=== PATIENT | female | born 1940 | race Caucasian/White ===

== ENCOUNTER 2018-09-23 15:21 | Inpatient (IN) ==
[2018-09-23] MEDS ORDERED: Isovue-370 500 ML BOTTLE IVP ONE (15:29)
[2018-09-23] MEDS ORDERED: Ondansetron 4 MG/2 ML VIAL IVP ONE (15:32)
[2018-09-23] MEDS ORDERED: 0.9 % Sodium Chloride 1,000 ML IVC ONE (15:32)
[2018-09-23] MEDS ORDERED: *HR* LORazepam 2 MG/ML VIAL IVP ONE (15:38)
--- NOTE | 2018-09-23 15:40 | Emergency Department Note ---
Disposition Clinical Impression: Nausea and vomiting Disposition: Still a Patient Condition: Fair Forms: ED Satisfaction Letter, Work/School Release Time of Disposition: 16:52 Abdominal Pain HPI - General Chief Complaint: ED Abdominal Pain Stated Complaint: NV Time Seen by Provider: 09/23/18 15:28 Source: patient - History of Present Illness HPI Narrative: Patient is a 78-year-old female who presents to the emergency room with complaints of nausea and vomiting. The patient also complaining of left-sided flank discomfort. The patient states the nausea and vomiting started about 10:00 today. Patient states this feels like when she had previous bowel tra ctions. Patient has seen Dr. Vega. She apparently contacted him earlier and she thought that she needed to come to the hospital. The patient denies any otherwise significant abdominal discomfort, chest pain, shortness of breath. She states her pain in her left flank, 5-10 scale, she states that she always has some chronic back pain. She denies any focal weakness or numbness. She has had no loss of bowel or bladder, she denies any saddle anesthesia. Patient denies any history of fall or trauma. She denies any head injury, she denies any headache, diaphoresis, fevers or chills. Patient has had no black or bloody stools or emesis. Pain Scale: 6 - Related Data Home Medications Medication Instructions Recorded Confirmed Amlodipine [Norvasc] 5 mg PO QPM 11/08/14 02/11/18 Aspirin/Acetaminophen/Caffeine 2 each PO BID PRN 11/08/14 02/11/18 [Excedrin Extra Strength Caplet] Calcium Carbonate/Vitamin D3 1 each PO BID 11/08/14 02/11/18 [Calcium 600 + D Tablet] Cholecalciferol (Vitamin D3) 1,000 unit PO DAILY 11/08/14 02/11/18 [Vitamin D] Docusate Sodium [Stool Softener] 250 mg PO BID 11/08/14 02/11/18 Fiber 2 tab PO BID 11/08/14 02/11/18 Losartan [Cozaar] 50 mg PO DAILY 11/08/14 02/11/18 Multivit-Min/FA/Lycopen/Lutein 1 each PO DAILY 11/08/14 02/11/18 [Centrum Silver Tablet] Niacin 500 mg PO BID 11/08/14 02/11/18 Potassium Chloride 20 meq PO TID 11/08/14 02/11/18 Propranolol [Inderal] 10 mg PO TID 11/08/14 02/11/18 Triamterene/HCTZ 37.5/25mg 1 tab PO QAM 11/08/14 02/11/18 [Dyazide] Ferrous Gluconate 324 mg PO DAILY 02/11/18 02/11/18 Rosuvastatin Calcium [Crestor] 5 mg PO HS 02/11/18 02/11/18 Previous Rx's Medication Instructions Recorded Acetaminophen [Tylenol] 650 mg PO Q6HR PRN tablet 02/17/18 Allergies Allergy/AdvReac Type Severity Reaction Status Date / Time Sulfa (Sulfonamide Allergy Mild Rash Verified 09/23/18 16:14 Antibiotics) JOHNNY Inhibitors AdvReac Mild Cough Verified 09/23/18 16:14 Abdominal Pain PMH - Past Medical History Medical history: Reports: hyperlipidemia, hypertension, other Female Surgical History: Reports: appendectomy, colectomy, hysterectomy, other Psychiatric history: Reports: no psych history - Social History Smoking status: Never smoker Alcohol use: Reports: none Drug use: Reports: none Physical Exam - General Limitations: no limitations General appearance: alert, in no apparent distress Course Vital Signs Temperature 98.9 F 09/23/18 15:24 Pulse Rate 97 09/23/18 15:24 Respiratory Rate 18 09/23/18 15:24 Blood Pressure 175/102 09/23/18 15:24 O2 Sat by Pulse Oximetry 94 09/23/18 15:24 Temperature 98.9 F 09/23/18 15:24 Pulse Rate 94 09/23/18 16:07 Respiratory Rate 21 09/23/18 16:07 Blood Pressure 185/93 09/23/18 16:07 O2 Sat by Pulse Oximetry 94 09/23/18 16:07 Oxygen Delivery Oxygen Delivery Room Air Abdominal Pain - MDM Narrative Medical decision making narrative: EKG was then that showed sinus rhythm 92 beats a minute, patient has what 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 Government Affairs Director myself. Patient has unremarkable workup so far here in the emergency room. The patient is pending urinalysis and CT. At this time case was turned over to Dr. Agrawal. Patient has unremarkable EKG. The patient at this point in time is resting comfortable in the emergency room. - Lab Data Result diagrams: 09/23/18 15:49 09/23/18 15:49 Lab Results 09/23/18 09/23/18 Range/Units 15:49 15:49 WBC 11.4 H (4.3-11.1) K/mcL RBC 5.11 H (3.82-4.97) M/mcL Hgb 14.1 (11.5-15.4) g/dL Hct 44.1 (35.3-44.9) % MCV 86.3 (83.0-100.0) fL MCH 27.6 L (28.0-33.3) pg MCHC 32.0 (31.6-35.5) g/dL RDW 14.3 (11.5-14.5) % Plt Count 327 (140-400) K/mcL MPV 9.8 (9.4-12.4) fL Immature Gran % 0.3 (0-4) % Seg Neutrophils % 91.9 % Lymphocytes % 3.9 % Monocytes % 3.2 % Eosinophils % 0.3 % Basophils % 0.4 % Neutrophils # 10.5 H (1.6-8.9) K/mcL Lymphocytes # 0.4 L (0.6-4.6) K/mcL Monocytes # 0.4 (0.0-1.3) K/mcL Eosinophils # 0.0 (0.0-0.6) K/mcL Basophils # 0.0 (0.0-0.2) K/mcL Sodium 137 (136-145) mEq/L Potassium 3.7 (3.5-5.1) mEq/L Chloride 98 (98-107) mEq/L Carbon Dioxide 30 H (23-29) mEq/L BUN 16 (8-23) mg/dL Creatinine 0.88 (0.60-1.20) mg/dL Est GFR ( Amer) > 60 (> 60) Est GFR (Non-Af Amer) > 60 (> 60) BUN/Creatinine Ratio 18 (6-26) Glucose 193 H (70-105) mg/dL Calculated Osmolality 290 (280-300) Calcium 10.5 H (8.6-10.3) mg/dL Total Bilirubin 0.3 (0.3-1.0) mg/dL Direct Bilirubin 0.1 (0.0-0.2) mg/dL Indirect Bilirubin 0.2 (0.0-1.2) mg/dL AST 20 (13-39) Units/L ALT 12 (7-52) Units/L Alkaline Phosphatase 64 (34-104) Units/L Troponin I < 0.03 (< 0.04) ng/mL Serum Total Protein 8.5 (6.4-8.9) g/dL Albumin 4.3 (3.5-5.7) g/dL Globulin 4.2 H (2.4-3.5) g/dL Albumin/Globulin Ratio 1.0 L (1.1-2.2) Lipase 10 L (11-82) Units/L
[2018-09-23 16:04] LABS: Basophils % 0.4 %; Eosinophils % 0.3 %; Hematocrit 44.1 % (35.3-44.9); Hemoglobin 14.1 g/dL (11.5-15.4); Immature Granulocytes % 0.3 % (0-4); Lymphocytes # 0.4 K/mcL (0.6-4.6); Lymphocytes % 3.9 %; Mean Corpuscular Hemoglobin 27.6 pg (28.0-33.3); Mean Corpuscular Volume 86.3 fL (83.0-100.0); Mean Platelet Volume 9.8 fL (9.4-12.4); Monocytes # 0.4 K/mcL (0.0-1.3); Monocytes % 3.2 %; Neutrophils # 10.5 K/mcL (1.6-8.9); Platelet Count 327 K/mcL (140-400); Red Blood Count 5.11 M/mcL (3.82-4.97); Red Cell Distribution Width 14.3 % (11.5-14.5); Segmented Neutrophils % 91.9 %; White Blood Count 11.4 K/mcL (4.3-11.1)
[2018-09-23 16:23] LABS: Alanine Aminotransferase 12 Units/L (7-52); Albumin 4.3 g/dL (3.5-5.7); Alkaline Phosphatase 64 Units/L (34-104); Aspartate Amino Transferase 20 Units/L (13-39); BUN/Creatinine Ratio 18 (6-26); Bilirubin,Direct 0.1 mg/dL (0.0-0.2); Bilirubin,Indirect 0.2 mg/dL (0.0-1.2); Bilirubin,Total 0.3 mg/dL (0.3-1.0); Blood Urea Nitrogen 16 mg/dL (8-23); Calcium 10.5 mg/dL (8.6-10.3); Carbon Dioxide 30 mEq/L (23-29); Chloride 98 mEq/L (98-107); Globulin 4.2 g/dL (2.4-3.5); Glucose 193 mg/dL (70-105); Lipase 10 Units/L (11-82); Osmolality,Calculated 290 (280-300); Potassium 3.7 mEq/L (3.5-5.1); Sodium 137 mEq/L (136-145); Total Protein 8.5 g/dL (6.4-8.9); eGFR For African Americans > 60 (> 60); eGFR For Non-African Americans > 60 (> 60)
[2018-09-23 16:39] LABS: Troponin I < 0.03 ng/mL (< 0.04)
[2018-09-23 17:04] LABS: Bilirubin,Urine Negative (Negative); Blood,Urine Small (Negative); Clarity,Urine Cloudy (Clear); Color,Urine Yellow (Yellow); Glucose,Urine (UA) Normal (Normal); Ketones,Urine Negative (Negative); Leukocyte Esterase,Urine Negative (Negative); Nitrite,Urine Negative (Negative); Protein,Urine 30 mg/dL (Neg-Trace); Specific Gravity,Urine 1.011 (1.010-1.025); Urobilinogen,Urine Normal (Normal)
[2018-09-23 17:05] LABS: Bacteria,Urine Many per hpf (None-Few); Hyaline Casts,Urine None Seen per lpf (None-Few); RBC,Urine 0-3 per hpf (0-3); Squamous Epithelial Cell,Urine Moderate per lpf (None-Few); WBC,Urine 0-3 per hpf (0-3)
[2018-09-23] MEDS ORDERED: *HR* FentaNYL (PF) 100 MCG/2 ML VIAL IVP ONE (18:05)
--- NOTE | 2018-09-23 18:47 | Emergency Department Note ---
Disposition Clinical Impression: Nausea and vomiting, Small bowel obstruction Disposition: Admitted As Inpatient Condition: Fair Referrals: Rashad Quevedo MD [Primary Care Provider] - Forms: ED Satisfaction Letter, Work/School Release Time of Disposition: 18:46 Abdominal Pain HPI - General Chief Complaint: ED Abdominal Pain Stated Complaint: NV Time Seen by Provider: 09/23/18 15:28 Source: patient - History of Present Illness Pain Scale: 6 - Related Data Home Medications Medication Instructions Recorded Confirmed Amlodipine [Norvasc] 5 mg PO QPM 11/08/14 02/11/18 Aspirin/Acetaminophen/Caffeine 2 each PO BID PRN 11/08/14 02/11/18 [Excedrin Extra Strength Caplet] Calcium Carbonate/Vitamin D3 1 each PO BID 11/08/14 02/11/18 [Calcium 600 + D Tablet] Cholecalciferol (Vitamin D3) 1,000 unit PO DAILY 11/08/14 02/11/18 [Vitamin D] Docusate Sodium [Stool Softener] 250 mg PO BID 11/08/14 02/11/18 Fiber 2 tab PO BID 11/08/14 02/11/18 Losartan [Cozaar] 50 mg PO DAILY 11/08/14 02/11/18 Multivit-Min/FA/Lycopen/Lutein 1 each PO DAILY 11/08/14 02/11/18 [Centrum Silver Tablet] Niacin 500 mg PO BID 11/08/14 02/11/18 Potassium Chloride 20 meq PO TID 11/08/14 02/11/18 Propranolol [Inderal] 10 mg PO TID 11/08/14 02/11/18 Triamterene/HCTZ 37.5/25mg 1 tab PO QAM 11/08/14 02/11/18 [Dyazide] Ferrous Gluconate 324 mg PO DAILY 02/11/18 02/11/18 Rosuvastatin Calcium [Crestor] 5 mg PO HS 02/11/18 02/11/18 Previous Rx's Medication Instructions Recorded Acetaminophen [Tylenol] 650 mg PO Q6HR PRN tablet 02/17/18 Allergies Allergy/AdvReac Type Severity Reaction Status Date / Time Sulfa (Sulfonamide Allergy Mild Rash Verified 09/23/18 16:14 Antibiotics) JOHNNY Inhibitors AdvReac Mild Cough Verified 09/23/18 16:14 Abdominal Pain PMH - Past Medical History Medical history: Reports: hyperlipidemia, hypertension, other Female Surgical History: Reports: appendectomy, colectomy, hysterectomy, other Psychiatric history: Reports: no psych history - Social History Smoking status: Never smoker Alcohol use: Reports: none Drug use: Reports: none Physical Exam - General Limitations: no limitations General appearance: alert, in no apparent distress Course Vital Signs Temperature 98.9 F 09/23/18 15:24 Pulse Rate 97 09/23/18 15:24 Respiratory Rate 18 09/23/18 15:24 Blood Pressure 175/102 09/23/18 15:24 O2 Sat by Pulse Oximetry 94 09/23/18 15:24 Temperature 98.9 F 09/23/18 15:24 Pulse Rate 107 09/23/18 18:26 Respiratory Rate 12 09/23/18 18:26 Blood Pressure 158/110 09/23/18 18:26 O2 Sat by Pulse Oximetry 94 09/23/18 18:26 Oxygen Delivery Oxygen Delivery Room Air Abdominal Pain - MDM Narrative Medical decision making narrative: I received signout on this patient from my colleague, laboratory studies were reviewed and were all within acceptable limits apart from a leukocytosis. CT scan of the abdomen and pelvis showed a high-grade small bowel obstruction within the proximal jejunum I contacted this patient's surgeon , who requested NG tube placement, admission to medicine with consult from himself he states he will see this patient and provide further management thereof. I spoke with Dr. Villa with the internal medicine service who has agreed to admit this patient. - Lab Data Result diagrams: 09/23/18 15:49 09/23/18 15:49 Lab Results 09/23/18 09/23/18 09/23/18 Range/Units 15:49 15:49 16:50 WBC 11.4 H (4.3-11.1) K/mcL RBC 5.11 H (3.82-4.97) M/mcL Hgb 14.1 (11.5-15.4) g/dL Hct 44.1 (35.3-44.9) % MCV 86.3 (83.0-100.0) fL MCH 27.6 L (28.0-33.3) pg MCHC 32.0 (31.6-35.5) g/dL RDW 14.3 (11.5-14.5) % Plt Count 327 (140-400) K/mcL MPV 9.8 (9.4-12.4) fL Immature Gran % 0.3 (0-4) % Seg Neutrophils % 91.9 % Lymphocytes % 3.9 % Monocytes % 3.2 % Eosinophils % 0.3 % Basophils % 0.4 % Neutrophils # 10.5 H (1.6-8.9) K/mcL Lymphocytes # 0.4 L (0.6-4.6) K/mcL Monocytes # 0.4 (0.0-1.3) K/mcL Eosinophils # 0.0 (0.0-0.6) K/mcL Basophils # 0.0 (0.0-0.2) K/mcL Sodium 137 (136-145) mEq/L Potassium 3.7 (3.5-5.1) mEq/L Chloride 98 (98-107) mEq/L Carbon Dioxide 30 H (23-29) mEq/L BUN 16 (8-23) mg/dL Creatinine 0.88 (0.60-1.20) mg/dL Est GFR ( Amer) > 60 (> 60) Est GFR (Non-Af Amer) > 60 (> 60) BUN/Creatinine Ratio 18 (6-26) Glucose 193 H (70-105) mg/dL Calculated Osmolality 290 (280-300) Calcium 10.5 H (8.6-10.3) mg/dL Total Bilirubin 0.3 (0.3-1.0) mg/dL Direct Bilirubin 0.1 (0.0-0.2) mg/dL Indirect Bilirubin 0.2 (0.0-1.2) mg/dL AST 20 (13-39) Units/L ALT 12 (7-52) Units/L Alkaline Phosphatase 64 (34-104) Units/L Troponin I < 0.03 (< 0.04) ng/mL Serum Total Protein 8.5 (6.4-8.9) g/dL Albumin 4.3 (3.5-5.7) g/dL Globulin 4.2 H (2.4-3.5) g/dL Albumin/Globulin Ratio 1.0 L (1.1-2.2) Lipase 10 L (11-82) Units/L Urine Color Yellow (Yellow) Urine Clarity Cloudy A (Clear) Urine pH 6.0 (5.0-8.0) pH Units Ur Specific [place] 1.011 (1.010-1.025) Urine Protein 30 H (Neg-Trace) mg/dL Urine Glucose (UA) Normal (Normal) mg/dL Urine Ketones Negative (Negative) mg/dL Urine Blood Small H (Negative) Urine Nitrite Negative (Negative) Urine Bilirubin Negative (Negative) Urine Urobilinogen Normal (Normal) mg/dL Ur Leukocyte Esterase Negative (Negative) Urine Microscopic RBC 0-3 (0-3) per hpf Urine Microscopic WBC 0-3 (0-3) per hpf Ur Squamous Epith Cells Moderate H (None-Few) per lpf Urine Bacteria Many H (None-Few) per hpf Hyaline Casts None Seen (None-Few) per lpf Ur Culture Indicated? YES A (NO)
[2018-09-23] MEDS ORDERED: Ondansetron 4 MG/2 ML VIAL IVP PRN (19:49)
[2018-09-23] MEDS ORDERED: Naloxone 0.4 MG/ML INJ IVP PRN (19:49)
--- NOTE | 2018-09-23 19:55 | Internal Med History&Physical ---
Date of Encounter: 09/23/18 Time of Encounter: 19:55 Internal Medicine - H&P: HPI Chief complaint: Abdominal Pain History of present illness: Ms. Solis is a 78 year old female with a PMH of hyperlipidemia, hypertension, and a surgical Hx of appendectomy, colectomy, hysterectomy and previous history of SBO status post lysis of adhesions who presents to the emergency room with complaints of nausea and vomiting. The patient states the nausea and vomiting started about 10:00 today shortly after having brunch. Patient states this feels like when she had previous bowel tractions. Patient has seen Dr. Vega. She apparently contacted him earlier and she thought that she needed to come to the hospital. The patient denies any otherwise significant abdominal discomfort, chest pain, shortness of breath. Last bowel movement was earlier this morning which she states was small in size and amount. Has not passed gas since arrival to the hospital. She denies any head injury, she denies any headache, diaphoresis, fevers or chills. Patient has had no black or bloody stools or emesis. On initial assessment patient was afebrile, mildly hypertensive saturating 93% on room air. Laboratory workup was notable for a mild leukocytosis of 11.4. Remainder of laboratory workup was unremarkable. CT scan of the abdomen and pelvis showed evidence of a high-grade small bowel obstruction in the proximal jejunum resulting in proximal small bowel and gastric dilatation. Case was discussed with , who requested NG tube placement, admission to medicine with consult from himself he states he will see this patient and provide further management thereof. 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, spinal stenosis, borderline DM, chronic fatigue, retrolisthesis of vertebrae, DJD, Psychiatric history: no psych history - Past Surgical History Surgical History: appendectomy, hysterectomy Additional surgical history: bowel resection-1990, bladder sling - Social History Smoking Status: Never smoker Smokeless Tobacco Status: No Alcohol use: none Drug use: none - Family History Mother Living Status: Hx Family Cardiac Disorders: Yes (HTN) Hx Family Neuromuscular Disorders: Yes (TIA) Internal Medicine - H&P: Meds Aspirin/Acetaminophen/Caffeine [Excedrin Extra Strength Caplet] 2 tab PO 3-4XD PRN 11/08/14 [History] Multivit-Min/FA/Lycopen/Lutein [Centrum Silver Tablet] 1 tab PO DAILY 11/08/14 [History] Propranolol [Inderal] 10 mg PO TID 11/08/14 [History] Ferrous Gluconate 324 mg PO BID 02/11/18 [History] Amlodipine Besylate 5 mg PO QPM 09/24/18 [History] Calcium Carbonate/Vitamin D3 [Calcium 600 + Vit D Tablet] 1 tab PO BID 09/24/18 [History] Cholecalciferol (Vitamin D3) [Vitamin D] 1,000 unit PO DAILY 09/24/18 [History] Docusate Sodium [Stool Softener] 100 mg PO BID 09/24/18 [History] Estradiol 1 appful VG 2XW 09/24/18 [History] Losartan Potassium [Cozaar] 50 mg PO DAILY 09/24/18 [History] Potassium Chloride [K-Tab ER] 20 meq PO TID 09/24/18 [History] Psyllium Husk [Fiber] 1.04 gm PO BID 09/24/18 [History] Rosuvastatin Calcium 10 mg PO HS 09/24/18 [History] Triamterene/HCTZ 37.5/25mg [Dyazide] 1 tab PO QAM 09/24/18 [History] Allergy/AdvReac Type Severity Reaction Status Date / Time Sulfa (Sulfonamide Allergy Mild Rash Verified 09/24/18 16:52 Antibiotics) JOHNNY Inhibitors AdvReac Mild Cough Verified 09/24/18 16:52 All Systems PM: A 10-system review of systems was performed and is negative for pertinent findings except as documented above in the HPI. - Constitutional Constitutional: no chills, no fever(s), no night sweats - EENT Eyes: no change in vision, no discharge, no pain, no photophobia Ears: no ear discharge, no ear pain, no tinnitus Nose, mouth and throat: no dysphagia, no nasal discharge, no neck pain, no sore throat - Cardiovascular Cardiovascular ROS IM: no chest pain, no diaphoresis, no dyspnea, no ligh theadedness, no palpitations, no syncope - Respiratory Respiratory: no cough, no dyspnea, no wheezing, no excessive phlegm production - Gastrointestinal Gastrointestinal: no abdominal pain, no diarrhea, no hematemesis, no hematochezia, no melena, no nausea, no vomiting - Genitourinary Genitourinary: no change in urinary stream, no dysuria, no flank pain, no hematuria - Musculoskeletal Musculoskeletal ROS IM: no numbness, no tingling - Integumentary Integumentary IM: no rash, no unusual bruising - Neurological Neurological ROS: no confusion, no convulsions, no focal weakness, no numbness, no tingling, no tremor(s) - Hematologic/Lymphatic Hematologic/Lymphatic: no easy bruising - Constitutional Vitals: Temp Pulse Resp BP Pulse Ox 98.9 F 110 22 171/113 93 09/23/18 15:24 09/23/18 19:48 09/23/18 19:48 09/23/18 19:48 09/23/18 19:48 Exam: General: Alert and oriented 3 lying in bed in no acute distress Skin:Normal color, no rash, no lesions. HEENT:EOM, pupils equal, round and reactive. Cardiovascular:Normal S1 & S2, no rubs, murmurs or gallops. No JVD. Pulse regular. Lungs:Normal breath sounds, no wheezes or crackles. Abdomen:Soft, non-tender, no rigidity. Positive bowel sounds Extremities:No deformity, no edema or tenderness, no joint swelling or clubbing. Neurological:Normal cognition and motor skills. Pulses:Carotid and radial pulses normal +2. Rest of the physical exam is non contributory Internal Med - H&P Results - Labs CBC & Chem 7: 09/24/18 05:21 09/24/18 05:21 Labs: Short CBC 09/23/18 Range/Units 15:49 WBC 11.4 H (4.3-11.1) K/mcL Hgb 14.1 (11.5-15.4) g/dL Hct 44.1 (35.3-44.9) % Plt Count 327 (140-400) K/mcL Neutrophils # 10.5 H (1.6-8.9) K/mcL BMP 09/23/18 15:49 Sodium 137 Potassium 3.7 Chloride 98 Carbon Dioxide 30 H BUN 16 Creatinine 0.88 Glucose 193 H Calcium 10.5 H Cardiac Enzymes 09/23/18 Range/Units 15:49 Troponin I < 0.03 (< 0.04) ng/mL Liver Function 09/23/18 Range/Units 15:49 Total Bilirubin 0.3 (0.3-1.0) mg/dL Direct Bilirubin 0.1 (0.0-0.2) mg/dL AST 20 (13-39) Units/L ALT 12 (7-52) Units/L Alkaline Phosphatase 64 (34-104) Units/L Albumin 4.3 (3.5-5.7) g/dL Urine 09/23/18 Range/Units 16:50 Urine Color Yellow (Yellow) Urine Clarity Cloudy A (Clear) Urine pH 6.0 (5.0-8.0) pH Units Ur Specific [place] 1.011 (1.010-1.025) Urine Protein 30 H (Neg-Trace) mg/dL Urine Glucose (UA) Normal (Normal) mg/dL - Impressions ITS Impressions Abdomen/Pelvis CT 09/23/18 15:29 IMPRESSION: Evidence of a high-grade small bowel obstruction in the proximal jejunum, resulting in proximal small bowel and gastric dilation. D/ / Luis Shahid MD / Luis Shahid MD Interpreting Provider: Luis Shahid MD - Assessment and Plan (1) Nausea and vomiting Current Visit: Yes Status: Acute Assessment and plan: Patient presenting with several episodes of nausea and nonbilious nonbloody emesis in the setting of CT findings suggestive of small bowel obstruction. Patient currently denies any nausea. -Antiemetics as needed Qualifiers: Qualified Code(s): R11.2 - Nausea with vomiting, unspecified (2) Small bowel obstruction Current Visit: Yes Status: Acute Assessment and plan: Previous history of small bowel obstruction status post lysis of adhesions in February of this year now presenting with what appears to be a recurrent episode of small bowel obstruction. CT scan of the abdomen showing high-grade small [place] wel obstruction in the proximal jejunum resulting in proximal small bowel and gastric dilatation. Current laboratory workup unremarkable. Last bowel movement reported to be earlier today with a small amount of stool. Has not passed gas since arrival to the hospital. Positive bowel sounds on examination. Abdominal exam otherwise benign. Case discussed with Dr. Vega who requested placement of NG tube. Per patient, multiple attempts were made to place NG tube unsuccessfully. Currently asymptomatic. -Continue supportive fluids -Antiemetics as needed -Optimize electrolytes -Surgery consult in. Follow-up recommendations. (3) Hypertension Current Visit: No Status: Chronic Assessment and plan: Blood pressure on arrival has been transiently hypertensive. Patient has not taken her blood pressure medications today. -Monitor BP and treat as needed Qualifiers: Hypertension type: essential hypertension Qualified Code(s): I10 - [place] l (primary) hypertension (4) DVT prophylaxis Current Visit: No Status: Acute Assessment and plan: Subcutaneous heparin - Time Spent With Patient Total time spent is greater than 50% in coordination of care (as documented) at patient's floor/unit and/or counseling patient:
[2018-09-23] MEDS ORDERED: 0.9 % Sodium Chloride 1,000 ML IVC SCH (20:00)
[2018-09-24] MEDS ORDERED: *HR* Heparin 5,000 UNIT/ML VIAL SQ SCH
[2018-09-24] MEDS: Ketorolac 15 MG/ML VIAL IVP PRN ×3 (02:10→20:32)
[2018-09-24] MEDS: *HR* Heparin 5,000 UNIT/ML VIAL SQ SCH ×2 (02:15→06:23)
[2018-09-24 05:32] LABS: Basophils % 0.2 %; Eosinophils % 0.7 %; Hematocrit 36.8 % (35.3-44.9); Immature Granulocytes % 0.2 % (0-4); Lymphocytes # 0.8 K/mcL (0.6-4.6); Mean Corpuscular HGB Conc 31.8 g/dL (31.6-35.5); Mean Corpuscular Hemoglobin 28.1 pg (28.0-33.3); Mean Corpuscular Volume 88.5 fL (83.0-100.0); Mean Platelet Volume 9.7 fL (9.4-12.4); Monocytes # 0.6 K/mcL (0.0-1.3); Monocytes % 10.2 %; Neutrophils # 4.3 K/mcL (1.6-8.9); Platelet Count 264 K/mcL (140-400); Red Blood Count 4.16 M/mcL (3.82-4.97); Red Cell Distribution Width 14.4 % (11.5-14.5); Segmented Neutrophils % 74.7 %; White Blood Count 5.7 K/mcL (4.3-11.1)
[2018-09-24 05:37] LABS: Hemoglobin 11.7 g/dL (11.5-15.4)
[2018-09-24 05:47] LABS: Prothrombin Time 11.9 Seconds (9.4-12.1)
[2018-09-24 05:50] LABS: Activated Partial Thrombo Time 27.3 Seconds (26.0-36.0)
[2018-09-24] MEDS ORDERED: *HR* Heparin 5,000 UNIT/ML VIAL ONE (06:20)
[2018-09-24 06:53] LABS: Alanine Aminotransferase 8 Units/L (7-52); Albumin 3.4 g/dL (3.5-5.7); Albumin/Globulin Ratio 1.1 (1.1-2.2); Alkaline Phosphatase 48 Units/L (34-104); Aspartate Amino Transferase 16 Units/L (13-39); BUN/Creatinine Ratio 18 (6-26); Bilirubin,Total 0.3 mg/dL (0.3-1.0); Blood Urea Nitrogen 13 mg/dL (8-23); Calcium 9.2 mg/dL (8.6-10.3); Carbon Dioxide 26 mEq/L (23-29); Chloride 105 mEq/L (98-107); Globulin 3.2 g/dL (2.4-3.5); Glucose 91 mg/dL (70-105); Magnesium 1.7 mg/dL (1.6-2.6); Osmolality,Calculated 286 (280-300); Potassium 3.4 mEq/L (3.5-5.1); Sodium 138 mEq/L (136-145); Total Protein 6.6 g/dL (6.4-8.9); eGFR For African Americans > 60 (> 60); eGFR For Non-African Americans > 60 (> 60)
[2018-09-24] MEDS ORDERED: *HR* Labetalol 20 MG/4 ML SYRINGE IVP PRN (07:42)
[2018-09-24] MEDS: 0.9 % Sodium Chloride w KCl 40 MEQ/1,000 ML MLS IVC SCH ×3 (09:17→21:56)
[2018-09-24] MEDS ORDERED: Acetaminophen IV 1,000 MG/100 ML INFUS..BTL IVPB ONE ×3 (11:00→22:35)
--- NOTE | 2018-09-24 11:04 | General Surgery Consult Note ---
Date of Encounter: 09/24/18 Time of Encounter: 10:50 History of Present Illness Reason for consult: abdominal pain (with radiologic evident SBO) Requesting physician: Colby Chandler History of present illness: 78-year-old female admitted to [facility] after presenting to the emergency department with new onset abdominal pain, distention, nausea and vomiting. The patient was complaining of left-sided flank discomfort but this appears to be related to her chronic back pain. The patient is familiar to me having presented in February 2018, with a 36 hour history of abdominal pain, nausea and vomiting due to a distal small bowel obstruction. This required exploratory celiotomy with extended lysis of adhesions and small bowel resection due to fixation of a short segment distal small bowel in the right lower pelvis. The current findings are consistent with a jejunal bowel obstruction. Since admission, the patient has received IV fluids and is feeling improved. NG tube placement was recommended but refused by the patient and her family. On my presentation the bedside this morning the patient is feeling significantly improved. The nausea and abdominal pain have resolved. The patient describes passage of a small hard BM and is passing flatus. Past medical history: Hyperlipidemia, hypertension, persistent/chronic hypokalemia; diverticulosis; chronic hip and low back pain; spinal stenosis; vertebral retrolisthesis, DJD; borderline diabetes; chronic fatigue syndrome Surgical history: Previous appendectomy, hysterectomy, bladder surg morelia/suspension; bowel resection in 1990 and repeat exploratory celiotomy with lysis of adhesions and small bowel resection to release a high-grade distal small bowel obstruction, 02/2018. Allergies: Sulfa; JOHNNY inhibitor Medications: Amlodipine 5 mg by mouth every afternoon Aspirin/acetaminophen/caffeine (Excedrin Extra Strength) to by mouth twice a day as needed for back pain Calcium carbonate/vitamin D3 (calcium 600+ D) 1 by mouth twice a day Cholecalciferol (vitamin D3) 1000 units by mouth daily Docusate 250 mg by mouth twice a day Fiber 2 tabs by mouth twice a day Losartan 50 mg by mouth daily Centrum Silver 1 by mouth daily Niacin 500 mg by mouth twice a day Potassium 20 mEq by mouth 3 times a day Propranolol 10 mg by mouth 3 times a day Triamterene/hydrochlorothiazide 37.5/25 mg 1 by mouth every morning Ferrous gluconate 324 mg by mouth daily Rosuvastatin 5 mg by mouth daily Acetaminophen 650 mg by mouth every 6 hours as needed for back pain Social history: Patient is , lives with her spouse; she has never smoked; she denies alcohol or tobacco use. Physical examination: The patient has remained afebrile and hemodynamically stable - currently 97.7, pulse 81 and regular, respirations 17, nonlabored; blood pressure 164/81. The patient is feeling better than on presentation to the [facility] ED. The patient appears well, age-appropriate, in no acute distress. The patient had been tachycardic on initial presentation to the emergency department. Skin is warm without obvious jaundice Lungs: Clear to auscultation; no abdominal pain on deep inspiration. Abdomen: Soft, nondistended, nontender. Active bowel sounds. No rebound or peritoneal signs. Impression: 78-year-old with new onset abdominal pain, distention, nausea and vomiting with radiologic evidence of a small bowel obstruction involving the jejunum. The acute symptoms have resolved with bowel rest and IV fluids. Plan: Small bowel follow-through using Gastrografin This was discussed with the patient and her attendant family. 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 bladder sling - Social History Smoking Status: Never smoker Smokeless Tobacco Status: No Alcohol use: none Drug use: none - Family History Mother Living Status: Hx Family Cardiac Disorders: Yes (HTN) Hx Family Neuromuscular Disorders: Yes (TIA) Medications and Allergies Amlodipine [Norvasc] 5 mg PO QPM 11/08/14 [History] Aspirin/Acetaminophen/Caffeine [Excedrin Extra Strength Caplet] 2 each PO BID PRN 11/08/14 [History] Calcium Carbonate/Vitamin D3 [Calcium 600 + D Tablet] 1 each PO BID 11/08/14 [History] Cholecalciferol (Vitamin D3) [Vitamin D] 1,000 unit PO DAILY 11/08/14 [History] Docusate Sodium [Stool Softener] 250 mg PO BID 11/08/14 [History] Fiber 2 tab PO BID 11/08/14 [History] Losartan [Cozaar] 50 mg PO DAILY 11/08/14 [History] Multivit-Min/FA/Lycopen/Lutein [Centrum Silver Tablet] 1 each PO DAILY 11/08/14 [History] Niacin 500 mg PO BID 11/08/14 [History] Potassium Chloride 20 meq PO TID 11/08/14 [History] Propranolol [Inderal] 10 mg PO TID 11/08/14 [History] Triamterene/HCTZ 37.5/25mg [Dyazide] 1 tab PO QAM 11/08/14 [History] Ferrous Gluconate 324 mg PO DAILY 02/11/18 [History] Rosuvastatin Calcium [Crestor] 5 mg PO HS 02/11/18 [History] Acetaminophen [Tylenol] 650 mg PO Q6HR PRN tablet 02/17/18 [Rx] Allergy/AdvReac Type Severity Reaction Status Date / Time Sulfa (Sulfonamide Allergy Mild Rash Verified 09/23/18 16:14 Antibiotics) JOHNNY Inhibitors AdvReac Mild Cough Verified 09/23/18 16:14 Review of Systems All systems PM: The remainder of the systems were reviewed and are negative General Surgery Exam Initial Vital Signs Temp Pulse Resp BP Pulse Ox 98.9 F 97 18 175/102 94 09/23/18 15:24 09/23/18 15:24 09/23/18 15:24 09/23/18 15:24 09/23/18 15:24 Exam Initial Vital Signs Temp Pulse Resp BP Pulse Ox 98.9 F 97 18 175/102 94 09/23/18 15:24 09/23/18 15:24 09/23/18 15:24 09/23/18 15:24 09/23/18 15:24 Results - Labs 09/24/18 05:21 09/24/18 05:21 Abnormal lab results WBC 11.4 K/mcL (4.3-11.1) H 09/23/18 15:49 RBC 5.11 M/mcL (3.82-4.97) H 09/23/18 15:49 MCH 27.6 pg (28.0-33.3) L 09/23/18 15:49 Neutrophils # 10.5 K/mcL (1.6-8.9) H 09/23/18 15:49 Lymphocytes # 0.4 K/mcL (0.6-4.6) L 09/23/18 15:49 Potassium 3.4 mEq/L (3.5-5.1) L 09/24/18 05:21 Carbon Dioxide 30 mEq/L (23-29) H 09/23/18 15:49 Glucose 193 mg/dL (70-105) H 09/23/18 15:49 Calcium 10.5 mg/dL (8.6-10.3) H 09/23/18 15:49 Albumin 3.4 g/dL (3.5-5.7) L 09/24/18 05:21 Globulin 4.2 g/dL (2.4-3.5) H 09/23/18 15:49 Albumin/Globulin Ratio 1.0 (1.1-2.2) L 09/23/18 15:49 Lipase 10 Units/L (11-82) L 09/23/18 15:49 Urine Clarity Cloudy (Clear) A 09/23/18 16:50 Urine Protein 30 mg/dL (Neg-Trace) H 09/23/18 16:50 Urine Blood Small (Negative) H 09/23/18 16:50 Ur Squamous Epith Cells Moderate per lpf (None-Few) H 09/23/18 16:50 Urine Bacteria Many per hpf (None-Few) H 09/23/18 16:50 Ur Culture Indicated? YES (NO) A 09/23/18 16:50 Diabetes panel 09/23/18 09/24/18 Range/Units 15:49 05:21 Sodium 137 138 (136-145) mEq/L Potassium 3.7 3.4 L (3.5-5.1) mEq/L Chloride 98 105 (98-107) mEq/L Carbon Dioxide 30 H 26 (23-29) mEq/L BUN 16 13 (8-23) mg/dL Creatinine 0.88 0.73 (0.60-1.20) mg/dL Glucose 193 H 91 (70-105) mg/dL Calcium 10.5 H 9.2 (8.6-10.3) mg/dL AST 20 16 (13-39) Units/L ALT 12 8 (7-52) Units/L Alkaline Phosphatase 64 48 (34-104) Units/L Albumin 4.3 3.4 L (3.5-5.7) g/dL Calcium panel 09/23/18 09/24/18 Range/Units 15:49 05:21 Calcium 10.5 H 9.2 (8.6-10.3) mg/dL Albumin 4.3 3.4 L (3.5-5.7) g/dL Pituitary panel 09/23/18 09/24/18 Range/Units 15:49 05:21 Sodium 137 138 (136-145) mEq/L Potassium 3.7 3.4 L (3.5-5.1) mEq/L Chloride 98 105 (98-107) mEq/L Carbon Dioxide 30 H 26 (23-29) mEq/L BUN 16 13 (8-23) mg/dL Creatinine 0.88 0.73 (0.60-1.20) mg/dL Glucose 193 H 91 (70-105) mg/dL Calcium 10.5 H 9.2 (8.6-10.3) mg/dL Adrenal panel 09/23/18 09/24/18 Range/Units 15:49 05:21 Sodium 137 138 (136-145) mEq/L Potassium 3.7 3.4 L (3.5-5.1) mEq/L Chloride 98 105 (98-107) mEq/L Carbon Dioxide 30 H 26 (23-29) mEq/L BUN 16 13 (8-23) mg/dL Creatinine 0.88 0.73 (0.60-1.20) mg/dL Glucose 193 H 91 (70-105) mg/dL Calcium 10.5 H 9.2 (8.6-10.3) mg/dL Total Bilirubin 0.3 0.3 (0.3-1.0) mg/dL AST 20 16 (13-39) Units/L ALT 12 8 (7-52) Units/L Alkaline Phosphatase 64 48 (34-104) Units/L Albumin 4.3 3.4 L (3.5-5.7) g/dL All other labs normal. Consult Discharge Plan - Plan Referrals: Rashad Quevedo MD [Primary Care Provider] -
--- NOTE | 2018-09-24 11:38 | Internal Med Progress Note ---
Hospitalist Progress Note - Encounter Date of Encounter: 09/24/18 Time of Encounter: 09:45 - Subjective Interval History: H&P reviewed. 78-year-old female with history of hypertension and multiple abdominal surgeries including adhesiolysis for small bowel obstruction in 02/2018 was admitted overnight due to abdominal pain/distention and nausea/vomiting. CT scan showed proximal jejunal SBO. ABdominal pain improved with bowel rest and IVF overnight. No fever/chills. - Exam Vitals: Temp Pulse Resp BP Pulse Ox 97.7 F 81 17 164/81 91 09/24/18 10:43 09/24/18 10:43 09/24/18 10:43 09/24/18 10:43 09/24/18 10:43 Exam: General: Alert and oriented 3 lying in bed in no acute distress Cardiovascular:Normal S1 & S2, no rubs, murmurs or gallops. No JVD. Pulse regul ar. Lungs:Normal breath sounds, no wheezes or crackles. Abdomen:Soft, non-tender, no rebound/guarding/rigidity. Positive bowel sounds Neurological: non-focal - Assessment and Plan (1) Small bowel obstruction Current Visit: Yes Status: Acute Assessment and Plan: hx of adhesiolysis for SBO in 02/2018, now with jejunal bowel obstruction NGT refused by the pt and the family symptomatically improved with bowel rest and IVF. Add potassium to IVF appreciate surgery input, for SBFT with gastrograffin (2) Hypertension Current Visit: No Status: Chronic Assessment and Plan: PRN labetalol while NPO (3) DVT prophylaxis Current Visit: No Status: Acute Assessment and Plan: SQ hep - Time Spent with Patient Total time spent is greater than 50% in coordination of care (as documented) at patient's floor/unit and/or counseling patient: 25 - 35 minutes Plan of Care Discussed with: patient (Also discussed with multiple family members at bedside.) Internal Medicine: Result - Labs CBC & Chem 7: 09/24/18 05:21 09/24/18 05:21 Labs: Short CBC 09/23/18 09/24/18 Range/Units 15:49 05:21 WBC 11.4 H 5.7 (4.3-11.1) K/mcL Hgb 14.1 11.7 D (11.5-15.4) g/dL Hct 44.1 36.8 (35.3-44.9) % Plt Count 327 264 (140-400) K/mcL Neutrophils # 10.5 H 4.3 (1.6-8.9) K/mcL BMP 09/23/18 09/24/18 15:49 05:21 Sodium 137 138 Potassium 3.7 3.4 L Chloride 98 105 Carbon Dioxide 30 H 26 BUN 16 13 Creatinine 0.88 0.73 Glucose 193 H 91 Calcium 10.5 H 9.2 Cardiac Enzymes 09/23/18 Range/Units 15:49 Troponin I < 0.03 (< 0.04) ng/mL Liver Function 09/23/18 09/24/18 Range/Units 15:49 05:21 Total Bilirubin 0.3 0.3 (0.3-1.0) mg/dL Direct Bilirubin 0.1 (0.0-0.2) mg/dL AST 20 16 (13-39) Units/L ALT 12 8 (7-52) Units/L Alkaline Phosphatase 64 48 (34-104) Units/L Albumin 4.3 3.4 L (3.5-5.7) g/dL Urine 09/23/18 Range/Units 16:50 Urine Color Yellow (Yellow) Urine Clarity Cloudy A (Clear) Urine pH 6.0 (5.0-8.0) pH Units Ur Specific [place] 1.011 (1.010-1.025) Urine Protein 30 H (Neg-Trace) mg/dL Urine Glucose (UA) Normal (Normal) mg/dL - ABG Interpretation ABG results: PT/INR, D-dimer PT 11.9 Seconds (9.4-12.1) 09/24/18 05:21 - Impressions Impressions Abdomen/Pelvis CT 09/23/18 15:29 IMPRESSION: Evidence of a high-grade small bowel obstruction in the proximal jejunum, resulting in proximal small bowel and gastric dilation. D/ / Luis Shahid MD / Luis Shahid MD Interpreting Provider: Luis Shahid MD Consult Discharge Plan - Plan Referrals: Rashad Quevedo MD [Primary Care Provider] - (2) Hypertension Qualifiers: Hypertension type: essential hypertension Qualified Code(s): I10 - Essential (primary) hypertension
--- NOTE | 2018-09-24 15:19 | Electrocardiograph Report ---
[facility] Test Date: 2018-09-23 Pat Name: Jana Solis Department: [id number] Room: 52 Gender: F [employer]: : 1940 Requested By: [id number] Order Number: [id number] Reading MD: Gonzales Inman Measurements Intervals [place] Rate: 92 P: 23 OR: 207 QRS: -46 QRSD: 95 T: 1 QT: 375 QTc: 464 Interpretive Statements Sinus rhythm Borderline prolonged OR interval Probable left atrial enlargement Left anterior fascicular block Electronically Signed On 09-24-2018 15:17:46 EDT by Gonzales Inman
--- NOTE | 2018-09-24 16:41 | General Surgery Progress Note ---
Date of Encounter: 09/24/18 Time of Encounter: 16:39 Subjective Patient reports: no new complaints, feels better Narrative: General Surgery - SBFT completed and reviewed. Oral contrast seen in colon within 30 minutes. NO SBO patient with diarrhea as a result of the oral contrast RECOMMENDATIONS; Full liquids tonight, if no recurrent abdominal pain, nausea vomiting, regular diet in AM discharge home Surgical follow-up only if recurrent symptoms. Discussed with patient and her family. Thank you for this consultation Objective Vital Signs - Last 8 Hours Temp Pulse Resp BP Pulse Ox 09/24/18 10:43 97.7 F 81 17 164/81 91 Intake and Output 09/24/18 09/24/18 09/24/18 07:59 15:59 23:59 Intake Total 800 / 800 Output Total 400 / 400 Balance -400 / 400 800 / 400 Intake: IV Fluids 800 / 800 0.9 % Sodium Chloride 1,000 ML 800 / 800 @ 75 mls/hr IVC .[id number] JASPAL Rx #:[id number] Output: Urine 400 / 400 Other: Meal NPO for Breakfast Blood Glucose* 91 - Labs 09/24/18 05:21 09/24/18 05:21 Diabetes panel 09/24/18 Range/Units 05:21 Sodium 138 (136-145) mEq/L Potassium 3.4 L (3.5-5.1) mEq/L Chloride 105 (98-107) mEq/L Carbon Dioxide 26 (23-29) mEq/L BUN 13 (8-23) mg/dL Creatinine 0.73 (0.60-1.20) mg/dL Glucose 91 (70-105) mg/dL Calcium 9.2 (8.6-10.3) mg/dL AST 16 (13-39) Units/L ALT 8 (7-52) Units/L Alkaline Phosphatase 48 (34-104) Units/L Albumin 3.4 L (3.5-5.7) g/dL Calcium panel 09/24/18 Range/Units 05:21 Calcium 9.2 (8.6-10.3) mg/dL Albumin 3.4 L (3.5-5.7) g/dL Pituitary panel 09/24/18 Range/Units 05:21 Sodium 138 (136-145) mEq/L Potassium 3.4 L (3.5-5.1) mEq/L Chloride 105 (98-107) mEq/L Carbon Dioxide 26 (23-29) mEq/L BUN 13 (8-23) mg/dL Creatinine 0.73 (0.60-1.20) mg/dL Glucose 91 (70-105) mg/dL Calcium 9.2 (8.6-10.3) mg/dL Adrenal panel 09/24/18 Range/Units 05:21 Sodium 138 (136-145) mEq/L Potassium 3.4 L (3.5-5.1) mEq/L Chloride 105 (98-107) mEq/L Carbon Dioxide 26 (23-29) mEq/L BUN 13 (8-23) mg/dL Creatinine 0.73 (0.60-1.20) mg/dL Glucose 91 (70-105) mg/dL Calcium 9.2 (8.6-10.3) mg/dL Total Bilirubin 0.3 (0.3-1.0) mg/dL AST 16 (13-39) Units/L ALT 8 (7-52) Units/L Alkaline Phosphatase 48 (34-104) Units/L Albumin 3.4 L (3.5-5.7) g/dL Consult Discharge Plan - Plan Referrals: Rashad Quevedo MD [Primary Care Provider] -
[2018-09-25 04:26] LABS: Basophils % 0.4 %; Eosinophils # 0.1 K/mcL (0.0-0.6); Eosinophils % 1.5 %; Hematocrit 35.5 % (35.3-44.9); Immature Granulocytes % 0.4 % (0-4); Lymphocytes # 0.8 K/mcL (0.6-4.6); Lymphocytes % 9.5 %; Mean Corpuscular Hemoglobin 27.6 pg (28.0-33.3); Mean Corpuscular Volume 89.2 fL (83.0-100.0); Mean Platelet Volume 9.8 fL (9.4-12.4); Monocytes # 0.6 K/mcL (0.0-1.3); Monocytes % 7.3 %; Neutrophils # 6.5 K/mcL (1.6-8.9); Platelet Count 241 K/mcL (140-400); Red Blood Count 3.98 M/mcL (3.82-4.97); Red Cell Distribution Width 14.3 % (11.5-14.5); Segmented Neutrophils % 80.9 %
[2018-09-25 04:42] LABS: BUN/Creatinine Ratio 23 (6-26); Blood Urea Nitrogen 12 mg/dL (8-23); Calcium 8.8 mg/dL (8.6-10.3); Carbon Dioxide 24 mEq/L (23-29); Chloride 108 mEq/L (98-107); Glucose 87 mg/dL (70-105); Magnesium 1.5 mg/dL (1.6-2.6); Osmolality,Calculated 287 (280-300); Potassium 3.5 mEq/L (3.5-5.1); Sodium 139 mEq/L (136-145); eGFR For African Americans > 60 (> 60); eGFR For Non-African Americans > 60 (> 60)
[2018-09-25] MEDS: *HR* Heparin 5,000 UNIT/ML VIAL SQ SCH (05:17)
[2018-09-25] MEDS: Ketorolac 15 MG/ML VIAL IVP PRN (05:27)
[2018-09-25 06:53] VITALS: BP 161/80
--- NOTE | 2018-09-25 10:53 | Discharge Summary ---
- NOTES TO OUTPATIENT PROVIDER Notes to Outpatient Provider: Follow up with Dr. Vega as outpatient if symptoms recur. Orders not resulted at time of discharge: Pending orders 09/23/18 16:50 Culture,Urine [RM] Stat Date of Encounter: 09/25/18 Time of Encounter: 08:30 - Discharge Diagnosis (1) Small bowel obstruction Priority: Primary Status: Acute (2) Hypertension Priority: Secondary Status: Chronic Qualifiers: Hypertension type: essential hypertension Qualified Code(s): I10 - Essential (primary) hypertension (3) DVT prophylaxis Priority: Secondary Status: Acute (4) Nausea and vomiting Priority: Secondary Status: Acute Qualifiers: Qualified Code(s): R11.2 - Nausea with vomiting, unspecified Hospital course: Ms. Solis is a 78 year old female with history of hypertension and multiple abdominal surgeries including adhesiolysis for small bowel obstruction in 02/2018, who was admitted due to abdominal pain/distention and nausea/vomiting. CT scan showed possible proximal jejunal SBO. Abdominal pain improved with bowel rest, IVF, and she subsequently underwent SBFT which did not show any evidence of ongoing bowel obstruction. Managed in consultation with surgery and her diet was successfully advanced to regular, and she will be discharged home with the instruction to follow with surgery if symptoms recur. Discharge discussed with: patient, family, nurse - Time Spent with Patient Total time spent providing and/or coordinating discharge services: 28 mins - Discharge Medications Prescriptions: Continued Propranolol [Inderal] 10 mg PO TID Multivit-Min/FA/Lycopen/Lutein [Centrum Silver Tablet] 1 tab PO DAILY Aspirin/Acetaminophen/Caffeine [Excedrin Extra Strength Caplet] 2 tab PO 3- 4XD PRN PRN Reason: Pain Ferrous Gluconate 324 mg PO BID Amlodipine Besylate 5 mg PO QPM Calcium Carbonate/Vitamin D3 [Calcium 600 + Vit D Tablet] 1 tab PO BID Cholecalciferol (Vitamin D3) [Vitamin D3] 1,000 unit PO DAILY Docusate Sodium [Stool Softener] 100 mg PO BID Estradiol 1 appful VG 2XW Losartan Potassium [Cozaar] 50 mg PO DAILY Potassium Chloride [K-Tab ER] 20 meq PO TID Psyllium Husk [Fiber] 1.04 gm PO BID Rosuvastatin Calcium 10 mg PO HS Triamterene/HCTZ 37.5/25mg [Dyazide] 1 tab PO QAM Home Medications: Aspirin/Acetaminophen/Caffeine [Excedrin Extra Strength Caplet] 2 tab PO 3-4XD PRN 11/08/14 [History] Multivit-Min/FA/Lycopen/Lutein [Centrum Silver Tablet] 1 tab PO DAILY 11/08/14 [History] Propranolol [Inderal] 10 mg PO TID 11/08/14 [History] Ferrous Gluconate 324 mg PO BID 02/11/18 [History] Amlodipine Besylate 5 mg PO QPM 09/24/18 [History] Calcium Carbonate/Vitamin D3 [Calcium 600 + Vit D Tablet] 1 tab PO BID 09/24/18 [History] Cholecalciferol (Vitamin D3) [Vitamin D3] 1,000 unit PO DAILY 09/24/18 [History] Docusate Sodium [Stool Softener] 100 mg PO BID 09/24/18 [History] Estradiol 1 appful VG 2XW 09/24/18 [History] Losartan Potassium [Cozaar] 50 mg PO DAILY 09/24/18 [History] Potassium Chloride [K-Tab ER] 20 meq PO TID 09/24/18 [History] Psyllium Husk [Fiber] 1.04 gm PO BID 09/24/18 [History] Rosuvastatin Calcium 10 mg PO HS 09/24/18 [History] Triamterene/HCTZ 37.5/25mg [Dyazide] 1 tab PO QAM 09/24/18 [History] Allergies/Adverse Reactions: Allergy/AdvReac Type Severity Reaction Status Date / Time Sulfa (Sulfonamide Allergy Mild Rash Verified 09/24/18 16:52 Antibiotics) JOHNNY Inhibitors AdvReac Mild Cough Verified 09/24/18 16:52 Date of admission: 09/23/18 19:49 Primary care physician: Rashad Quevedo MD Consults: 09/23/18 18:39 Consult to Surgery [CONS] Stat Consulting Provider: Pratik Vega Reason for Consult: SBO Call Completed: Yes - Constitutional Vitals: Temp Pulse Resp BP Pulse Ox 98.1 F 80 15 161/80 92 09/25/18 06:49 09/25/18 06:49 09/25/18 06:49 09/25/18 06:49 09/25/18 06:49 Exam: General: Alert and oriented 3 lying in bed in no acute distress Cardiovascular:Normal S1 & S2, no rubs, murmurs or gallops. No JVD. Pulse regular. Lungs:Normal breath sounds, no wheezes or crackles. Abdomen:Soft, non-tender, no rebound/guarding/rigidity. Positive bowel sounds Neurological: non-focal - Patient Status Disposition: Home, Self-Care Condition: Fair Functional capacity at discharge: independent ambulation Overall status at discharge: patient is progressing back to baseline - Discharge Instructions Instructions: Chronic Hypertension (DC) Follow Up With: Rashad Quevedo MD [Primary Care Provider] - - Diet and Activity Activity: resume usual activities as tolerated Diet: advance to your usual diet
[2018-09-25] MEDS ORDERED: amLODIPine 5 MG TABLET PO SCH (18:00)
== END 2018-09-25 11:25 | disposition home or self-care (01) | DRG 390 ==
LOC: 3ANU 15:21 → EMEROOARM 15:21 → SUATTDRO 19:49 → 3ANU 20:35
PROVIDERS: ADMIT Internal Medicine; ATTEND Internal Medicine